=== PATIENT | male | born 1950 | race Caucasian/White ===

== ENCOUNTER → 2018-07-01 | Outpatient (CLI) | payer BC | END | disposition home or self-care (01) | LOC: LABWHC1 10:20 | PROVIDERS: ATTEND Urology | DX: C61 Malignant neoplasm of prostate (principal) | CPT/HCPCS: 36415; 84153 ==

== ENCOUNTER → 2024-09-21 | Outpatient (CLI) | payer MEDICARE ==
[2024-09-21 15:17] LABS: Basophils # (A) 0.03 X 10*3/uL (0.00-0.10); Basophils % (A) 0.5 %; Eosinophils # (A) 0.12 X 10*3/uL (0.04-0.35); HCT 44.5 % (39.6-50.0); HGB 15.3 g/dL (13.0-17.0); Lymphocytes # (A) 1.59 X 10*3/uL (0.90-5.00); Lymphocytes % (A) 26.7 %; MCH 31.4 pg (27.0-32.0); MCHC 34.4 g/dL (32.0-37.0); MCV 91.2 FL (80.0-97.0); Mean Platelet Volume 10.2 FL (9.5-12.2); Monocytes # (A) 0.63 X 10*3/uL (0.20-1.00); Monocytes % (A) 10.6 %; NRBC Per 100 WBC 0 X 10*3/uL (0.00-0.01); Neutrophils # (A) 3.57 X 10*3/uL (1.80-7.70); Neutrophils % (A) 59.9 %; Platelet Count 213 X 10*3/uL (140-440); RBC 4.88 X 10*6/uL (4.40-5.60); RDW 12.6 % (11.5-14.5); WBC 5.96 X 10*3/uL (4.50-10.00)
[2024-09-21 15:56] LABS: BUN/Creat Ratio 12.67 Ratio (12.00-20.00); Blood Urea Nitrogen 11.4 mg/dL (9.0-27.0); Calcium 9.1 mg/dL (8.7-10.3); Carbon Dioxide 24.1 mmol/L (21.6-31.8); Chloride 106 mmol/L (96-109); Glucose 91 mg/dL (70-110); Potassium 4.7 mmol/L (3.5-5.5); Sodium 141 mmol/L (135-145)
== END | disposition home or self-care (01) ==
LOC: LABPAT 11:34
PROVIDERS: ATTEND Urology
DX: Z01.812 Encounter for preprocedural laboratory examination (principal); N20.0 Calculus of kidney
CPT/HCPCS: 80048; 85025

== ENCOUNTER 2024-09-27 09:14 | Day surgery (SDC) | payer MEDICARE ==
[2024-09-25 14:24] VITALS: BMI 28.7
--- NOTE | 2024-09-26 22:22 | P.GSHP ---
History of Present Illness H&P Date: 09/26/24 Chief Complaint: Gross hematuria The patient is a 74-year-old white male who underwent a robotic assisted laparoscopic prostatectomy in 2017 for prostate cancer. He has recently experienced gross hematuria. He has a history of kidney stones, and CT scan showed a 1 cm right renal pelvic calculus. Alternative treatment options were removed, and he has elected to undergo ureteroscopic removal of the calculus. - Genitourinary (Male) Genitourinary: Reports flank pain, Reports hematuria, Denies dysuria Past Medical History Past Medical History: Deep Vein Thrombosis (DVT), Hyperlipidemia Additional Past Medical History / Comment(s): DVT Right leg; high hgb level 40 years ago, bone marrow bx taken to r/o leukemia; kidney stone History of Any Multi-Drug Resistant Organisms: None Reported Past Surgical History: Prostate Surgery Additional Past Surgical History / Comment(s): Prostate removal 9 years ago; finger reattachment. Past Anesthesia/Blood Transfusion Reactions: No Reported Reaction Past Psychological History: No Psychological Hx Reported Smoking Status: Former smoker Past Alcohol Use History: Occasional Additional Past Alcohol Use History / Comment(s): Quit 30 years ago; smoked 1-2 ppd. Past Drug Use History: None Reported - Past Family History Mother Family Medical History: Coronary Artery Disease (CAD) Father Family Medical History: Cancer Brother(s) Family Medical History: Chest Pain / Angina Medications and Allergies Home Medications Medication Instructions Recorded Confirmed Type Ezetimibe [Zetia] 10 mg PO DAILY 09/25/24 09/25/24 History Magnesium 200 mg PO WE 09/25/24 09/25/24 History Rivaroxaban [Xarelto] 20 mg PO DAILY 09/25/24 09/25/24 History Allergies Allergy/AdvReac Type Severity Reaction Status Date / Time No Known Allergies Allergy Verified 09/25/24 14:12 Surgical - Exam - General well developed, well nourished, no distress - Respiratory normal respiratory effort - Psychiatric oriented to time, oriented to person, oriented to place, speech is normal, memory intact Assessment and Plan (1) Calculus of kidney Status: Acute Code(s): N20.0 - CALCULUS OF KIDNEY SNOMED Code(s): 09081608 Plan: Cystoscopy, right ureteroscopy with Holmium laser lithotripsy and stone basketing, right ureteral stent insertion. The procedure has been reviewed in detail with the patient. He has been made aware of potential risks, which include anesthesia, bleeding, infection, ureteral injury, and inability to remove the calculus. He is aware of the possible need for a secondary procedure. The possibility that he will be found to have intravesical pathology was discussed, and if so he is agreeable to indicated procedures.
[~2024-09-27 09:14] MED LIST: LIDOCAINE 1% (10MG/ML) FOR IV START INTRADERMA PRN; droPERidol 2.5 MG/ML VIAL IVP ONE
[2024-09-27] MEDS: IV FLUID CONTINUATION 1,000 ML IV ONE (09:42)
--- NOTE | 2024-09-27 09:52 | XR ---
EXAMINATION TYPE: XR KUB DATE OF EXAM: 09/27/2024 9:45 AM COMPARISON: Nonerrrrrrrrrrrrrrrrrrrrrrrrrrrrr CLINICAL INDICATION: Male, 74 years old with history of pre surgical, TECHNIQUE: Single view of the abdomen. FINDINGS: Right renal calculi: None Visualized. Right ureteral calculi: Right UPJ calculus measuring 8 mm. Left renal calculi: None Visualized. Left ureteral calculi: None Visualized. Pelvic calcifications: None Visualized. Bowel gas pattern is unremarkable. No free air. No mass effects. IMPRESSION: 1. Right UPJ calculus measuring 8 mm. [facility], , 09/27/2024 9:50 AM
[2024-09-27] MEDS: LACTATED RINGERS 1,000 ML IV SCH (10:10)
[2024-09-27] MEDS: DEXAMETHASONE SOD PHOSPHATE 4 MG/ML 1 ML VIAL IV ONE (10:10)
[2024-09-27] MEDS: ONDANSETRON 4 MG/2 ML VIAL IVP ONE (10:10)
[2024-09-27] MEDS: FAMOTIDINE 20 MG/2 ML VIAL IV STA (10:18)
[2024-09-27] MEDS ORDERED: SUCCINYLCHOLINE CHLORIDE 200 MG/10 ML VIAL IV ONE (11:35)
[2024-09-27] MEDS ORDERED: fentaNYL (PF) 50 MCG/ML 2 ML AMP ONE (11:35)
[2024-09-27] MEDS ORDERED: PROPOFOL 10 MG/ML 20 ML VIAL IV ONE (11:35)
[2024-09-27] MEDS ORDERED: HYDROmorphone (PF) 1 MG/ML ONE (11:35)
[2024-09-27] MEDS ORDERED: LIDOCAINE 1% INJ 10MG/ML (20 ML MDV) ONE (11:35)
[2024-09-27] MEDS ORDERED: MIDAZOLAM 2 MG/2 ML VIAL ONE (11:35)
[2024-09-27 13:11] VITALS: TEMP 97
--- NOTE | 2024-09-27 13:15 | FL ---
19 SEC FLUORO, DAP .[id number] mGRUMA beltránO IN [place].R. [facility], , 09/27/2024 1:12 PM
--- NOTE | 2024-09-27 13:17 | P.OP ---
Date of Procedure: 09/27/24 Preoperative Diagnosis: Right renal calculus Postoperative Diagnosis: Same Procedure(s) Performed: Cystoscopy, right ureteroscopy with Holmium laser lithotripsy and stone basketing, right ureteral stent insertion Anesthesia: ENZO Surgeon: Cecil Hernandez Estimated Blood Loss (ml): 5 IV fluids (ml): 600 Pathology: other (Right renal calculus fragment, sent for chemical analysis) Condition: stable Disposition: PACU Indications for Procedure: The patient is a 74-year-old white male who underwent a robotic assisted laparoscopic prostatectomy in 2017 for prostate cancer. He has recently experienced gross hematuria. He has a history of kidney stones, and CT scan showed a 1 cm right renal pelvic calculus. Alternative treatment options were removed, and he has elected to undergo ureteroscopic removal of the calculus. Operative Findings: 1 cm right renal calculus, fragmented completely. Description of Procedure: The patient was taken to the operating room and placed in the dorsolithotomy position, with legs supported in Eric stirrups. The external genitalia was prepped and draped sterilely. The 30 lens was used to introduce the 21-Monegasque Carrington cystoscopic sheath through the urethra and into the bladder under direct vision. The urethra appeared normal. The prostate is surgically absent. The bladder was examined in its entirety. Both ureteral orifices were normal anatomic location and configuration, and clear urine effluxed from both. No tumors or foreign bodies were seen. A 0.038 inch Glidewire was passed through the cystoscope. The right ureteral orifice was cannulated, and the Glidewire was advanced up to the renal pelvis. The cystoscope was removed, and an 11/13- Monegasque ureteral access catheter was passed over the wire, up to the proximal ureter. The Carrington Lagoara flexible ureteroscope was then passed through the ureteral access catheter sheath and advanced under direct vision up to the right renal pelvis. The right UPJ was noted to be narrowed, making passage into the renal pelvis somewhat difficult. The calculus was readily visualized. The 272 micron Holmium laser probe was passed through the ureteroscope, and lithotripsy was performed primarily utilizing a dusting mode. However, the calculus began to fragment, and fragments migrated into a midpole calyx. Within that calyx, popcorning was performed, leaving no residual calculus fragments exceeding 1 mm in size. Fluoroscopy was performed, and no calculus fragments could be visualized. A 1.9 Monegasque 0 tip nitinol basket was used to grasp fragments, but given how small the fragments were only a 1 mm fragment could be removed and sent for analysis. Pullout ureteroscopy showed no evidence of ureteral trauma. The Glidewire was passed through the ureteroscope, which was removed along with the ureteral access catheter sheath. The Glidewire was backloaded into the cystoscope, which was passed into the bladder. A 26 cm, 4.8 Monegasque double-J ureteral stent was placed over the wire. Proper stent positioning was verified fluoroscopically and endoscopically. The bladder was emptied and the cystoscope removed. A string was left attached to the stent, and this was taped to the penis using a Tegaderm dressing. The patient tolerated the procedure well and was taken to the recovery room in stable condition. CRISTIAN COOLEY Report: Procedure Acuity: Elective Stone Size and Location: 1 cm, right renal pelvis Ureteral Dilation: No Ureteral Access Sheath Used: Yes Stone Sent for Analysis: Yes All Stones/Fragments Were Removed with a Basket: No Complications: No Preoperative Antibiotics Given: Yes Stent Placed: Yes If Stent Placed, Was String Left Attached: Yes If Stent Placed, When is it to be Removed: 1 week Discharge Medications: Tamsulosin
[2024-09-27] MEDS: HYDROmorphone 0.5 MG/0.5 ML SYRINGE IVP PRN (13:40)
[2024-09-27] MEDS: KETOROLAC 15 MG/ML 1 ML VIAL IVP STA (14:22)
[2024-09-27 15:07] VITALS: RESP 17
[2024-09-27 15:18] VITALS: BP 135/83; PULSE 71
== END 2024-09-27 16:12 | disposition home or self-care (01) ==
LOC: OR 09:14
PROVIDERS: ATTEND Urology
DX: N20.2 Calculus of kidney with calculus of ureter (principal); R31.0 Gross hematuria; K21.9 Gastro-esophageal reflux disease without esophagitis; E78.5 Hyperlipidemia, unspecified; Z90.79 Acquired absence of other genital organ(s); Z86.718 Personal history of other venous thrombosis and embolism; Z87.891 Personal history of nicotine dependence; Z82.49 Family history of ischemic heart disease and other diseases of the circulatory system; Z79.01 Long term (current) use of anticoagulants; Z79.899 Other long term (current) drug therapy
CPT/HCPCS: 82365; 74018; 52356; C1769; J2250; J0330; J1100; J0690; J2405; J2003; J3010; J1171 ×2; J1885; J2704; J1308

== ENCOUNTER 2024-09-30 15:53 | Emergency (ER) | payer MEDICARE ==
--- NOTE | 2024-09-30 16:23 | ED ---
Abdominal Pain HPI - General Chief Complaint: Abdominal Pain Stated Complaint: Vomiting Time Seen by Provider: 09/30/24 16:20 Source: patient, RN notes reviewed, old records reviewed Mode of arrival: ambulatory Limitations: no limitations - History of Present Illness Initial Comments: This is a 74-year-old male to the ER for evaluation today. This patient presents today for evaluation regards to significant severe abdominal pain right-sided flank pain recent bladder cystoscopy with persistent hematuria after, patient also had right-sided kidney stone that was broken up by Dr. Crane, patient's pain is increased today to severe pain with nausea right flank in the groin mild right side of his abdomen with difficulty with urination bloody urination no clots no blood thinners MD Complaint: abdominal pain -: days(s) Location: RLQ, R flank Radiation: RLQ, R flank Migration to: suprapubic Severity: severe Severity scale (1-10): 10 Quality: sharp Consistency: constant Improves With: nothing Worsens With: nothing Context: recent surgery/procedure Associated Symptoms: nausea Treatments Prior to Arrival: other - Related Data Home Medications Medication Instructions Recorded Confirmed Ezetimibe [Zetia] 10 mg PO DAILY 09/25/24 09/27/24 Magnesium 200 mg PO WE 09/25/24 09/27/24 Rivaroxaban [Xarelto] 20 mg PO DAILY 09/25/24 09/27/24 Previous Rx's Medication Instructions Recorded Tamsulosin [Flomax] 0.4 mg PO DAILY #10 cap 09/27/24 Allergies Allergy/AdvReac Type Severity Reaction Status Date / Time No Known Allergies Allergy Verified 09/30/24 16:16 Review of Systems ROS Statement: Those systems with pertinent positive or pertinent negative responses have been documented in the HPI. ROS Other: All systems not noted in ROS Statement are negative. Past Medical History Past Medical History: Hyperlipidemia Additional Past Medical History / Comment(s): blood clot in leg, History of Any Multi-Drug Resistant Organisms: None Reported Past Surgical History: Prostate Surgery Additional Past Surgical History / Comment(s): prostatectomy, right index finger, Past Psychological History: Anxiety Smoking Status: Former smoker Past Alcohol Use History: Occasional Past Drug Use History: None Reported General Exam Limitations: no limitations General appearance: alert, in no apparent distress, anxious Head exam: Present: atraumatic, normocephalic, normal inspection Eye exam: Present: normal appearance, PERRL, EOMI. Absent: scleral icterus, conjunctival injection, periorbital swelling ENT exam: Present: normal exam, mucous membranes moist Neck exam: Present: normal inspection. Absent: tenderness, meningismus, lymphadenopathy Respiratory exam: Present: normal lung sounds bilaterally. Absent: respiratory distress, wheezes, rales, rhonchi, stridor Cardiovascular Exam: Present: regular rate, normal rhythm, normal heart sounds. Absent: systolic murmur, diastolic murmur, rubs, gallop, clicks GI/Abdominal exam: Present: soft, normal bowel sounds. Absent: distended, tenderness, guarding, rebound, rigid Extremities exam: Present: normal inspection, full ROM, normal capillary refill. Absent: tenderness, pedal edema, joint swelling, calf tenderness Back exam: Present: normal inspection Neurological exam: Present: alert, oriented X3, CN II-XII intact Psychiatric exam: Present: normal affect, normal mood Skin exam: Present: warm, dry, intact, normal color. Absent: rash Course Vital Signs 09/30/24 09/30/24 16:01 18:10 Temperature 97.6 F Pulse Rate 79 78 Respiratory 18 16 Rate Blood Pressure 173/105 136/91 O2 Sat by Pulse 97 98 Oximetry - Reevaluation(s) Reevaluation #1: 09/30/24 17:07 Medical records reviewed Reevaluation #4: Was pt. sent in by a medical professional or institution ([facility], [facility], urgent care, hospital, or longterm...) When possible be specific @ -no Did you speak to anyone other than the patient for history (EMS, parent, family, police, friend...)? What history was obtained from this source @ -no Did you review nursing and triage notes (agree or disagree)? Why? @ -agree Are old charts reviewed (outside hosp., previous admission, EMS record, old EKG, old radiological studies, urgent care reports/EKG's, longterm records)? Report findings @ -yes Differential Diagnosis (chest pain, altered mental status, abdominal pain women, abdominal pain men, vaginal bleeding, weakness, fever, dyspnea, syncope, headache, dizziness, GI bleed, back pain, seizure, CVA, palpatations, mental health, musculoskeletal)? @ -prior EKG interpreted by me (3pts min.). @ -yes X-rays interpreted by me (1pt min.). @ -yes negative for acute disease CT interpreted by me (1pt min.). @ -no U/S interpreted by me (1pt. min.). @ -no What testing was considered but not performed or refused? (CT, X-rays, U/S, labs)? Why? @ -none What meds were considered but not given or refused? Why? @ -none Did you discuss the management of the patient with other professionals (professionals i.e. , PA, [facility], lab, RT, psych nurse, social organization professor, personal protection specialist, teacher, public health service officer, rn field case manager)? Give summary @ -no Was smoking cessation discussed for >3mins.? @ -no Was critical care preformed (if so, how long)? @ -no Were there social determinants of health that impacted care today? How? (Homelessness, low income, unemployed, alcoholism, drug addiction, transportation, low edu. Level, literacy, decrease access to med. care, senior living, rehab)? @ -none Was there de-escalation of care discussed even if they declined (Discuss DNR or withdrawal of care, Hospice)? DNR status @ -no What co-morbidities impacted this encounter? (DM, HTN, Smoking, COPD, CAD, Cancer, CVA, ARF, Chemo, Hep., AIDS, mental health diagnosis, sleep apnea, morbid obesity)? @ -none Was patient admitted / discharged? Hospital course, mention meds given and route, prescriptions, significant lab abnormalities, going to OR and other pertinent info. @ - Undiagnosed new problem with uncertain prognosis? @ -no Drug Therapy requiring intensive monitoring for toxicity (Heparin, Nitro, Insulin, Cardizem)? @ -no Were any procedures done? @ -no Diagnosis/symptom? @ - Acute, or Chronic, or Acute on Chronic? @ -Acute Uncomplicated (without systemic symptoms) or Complicated (systemic symptoms)? @ -Complicated Side effects of treatment? @ -no Exacerbation, Progression, or Severe Exacerbation? @ -exacerbation Poses a threat to life or bodily function? How? (Chest pain, [place], [place], pneumonia, PE, COPD, DKA, ARF, appy, cholecystitis, CVA, Diverticulitis, Homicidal, Aranza cidal, threat to staff... and all critical care pts) @ -yes Reevaluation #5: Differential Abdominal Pain Men: Appendicitis, cholecystitis, diverticulosis, ischemic bowel, pancreatitis, hepatitis, UTI, gastroenteritis, AAA, incarcerated hernia, bowel obstruction, constipation, inflammatory bowel, hepatitis, peptic ulcer disease, splenic infarction, perforated viscus, testicular torsion, this is not meant to be an all-inclusive list Medical Decision Making - Lab Data Result diagrams: 09/30/24 16:58 09/30/24 16:58 Lab Results 09/30/24 09/30/24 09/30/24 Range/Units 16:58 16:58 16:58 WBC 9.00 (4.50-10.00) 10*3/uL RBC 5.11 (4.40-5.60) 10*6/uL Hgb 16.3 (13.0-17.0) g/dL Hct 45.6 (39.6-50.0) % MCV 89.2 (80.0-97.0) fL MCH 31.9 (27.0-32.0) pg MCHC 35.7 (32.0-37.0) g/dL Plt Count 211 (140-440) 10*3/uL MPV 9.9 (9.5-12.2) fL Immature Gran % (Auto) 0.8 % Neutrophils % 72.5 % Lymphocytes % 14.8 % Monocytes % 10.0 % Eosinophils % 1.3 % Basophils % 0.6 % Immature Gran # 0.07 H (0.00-0.04) 10*3/uL Neutrophils # 6.53 (1.80-7.70) 10*3/uL Lymphocytes # 1.33 (0.90-5.00) 10*3/uL Monocytes # 0.90 (0.20-1.00) 10*3/uL Eosinophils # 0.12 (0.04-0.35) 10*3/uL Basophils # 0.05 (0.00-0.10) 10*3/uL PT 12.0 (10.0-12.5) sec INR 1.1 (<1.2) APTT 26.0 (22.0-30.0) sec Sodium (137-145) mmol/L Potassium (3.5-5.1) mmol/L Chloride (98-107) mmol/L Carbon Dioxide (22-30) mmol/L Anion Gap mmol/L BUN (9-20) mg/dL Creatinine (0.66-1.25) mg/dL Est GFR (CKD-EPI)AfAm (>60 ml/min/1.73 sqM) Est GFR (CKD-EPI)NonAf (>60 ml/min/1.73 sqM) Glucose (74-99) mg/dL Plasma Lactic Acid Franco (0.7-2.0) mmol/L Calcium (8.4-10.2) mg/dL Phosphorus (2.5-4.5) mg/dL Magnesium (1.6-2.3) mg/dL Total Bilirubin (0.2-1.3) mg/dL AST (17-59) U/L ALT (4-49) U/L Alkaline Phosphatase (38-126) U/L Troponin I (0.000-0.034) ng/mL Total Protein (6.3-8.2) g/dL Albumin (3.5-5.0) g/dL Amylase (30-110) U/L Lipase (23-300) U/L Urine Color Dark Red Urine Appearance Turbid (Clear) Urine RBC >182 H (0-5) /hpf Urine WBC 52 H (0-5) /hpf Urine Bacteria Rare H (None) /hpf Urine Mucus Many H (None) /hpf Urine Yeast (Budding) Rare H (None) /hpf 09/30/24 09/30/24 09/30/24 Range/Units 16:58 16:58 16:58 WBC (4.50-10.00) 10*3/uL RBC (4.40-5.60) 10*6/uL Hgb (13.0-17.0) g/dL Hct (39.6-50.0) % MCV (80.0-97.0) fL MCH (27.0-32.0) pg MCHC (32.0-37.0) g/dL Plt Count (140-440) 10*3/uL MPV (9.5-12.2) fL Immature Gran % (Auto) % Neutrophils % % Lymphocytes % % Monocytes % % Eosinophils % % Basophils % % Immature Gran # (0.00-0.04) 10*3/uL Neutrophils # (1.80-7.70) 10*3/uL Lymphocytes # (0.90-5.00) 10*3/uL Monocytes # (0.20-1.00) 10*3/uL Eosinophils # (0.04-0.35) 10*3/uL Basophils # (0.00-0.10) 10*3/uL PT (10.0-12.5) sec INR (<1.2) APTT (22.0-30.0) sec Sodium 139 (137-145) mmol/L Potassium 4.3 (3.5-5.1) mmol/L Chloride 104 (98-107) mmol/L Carbon Dioxide 26 (22-30) mmol/L Anion Gap 9 mmol/L BUN 15 (9-20) mg/dL Creatinine 1.08 (0.66-1.25) mg/dL Est GFR (CKD-EPI)AfAm 79 (>60 ml/min/1.73 sqM) Est GFR (CKD-EPI)NonAf 68 (>60 ml/min/1.73 sqM) Glucose 107 H (74-99) mg/dL Plasma Lactic Acid Franco 1.3 (0.7-2.0) mmol/L Calcium 9.9 (8.4-10.2) mg/dL Phosphorus 3.6 (2.5-4.5) mg/dL Magnesium 1.9 (1.6-2.3) mg/dL Total Bilirubin 1.4 H (0.2-1.3) mg/dL AST 29 (17-59) U/L ALT 37 (4-49) U/L Alkaline Phosphatase 82 (38-126) U/L Troponin I <0.012 (0.000-0.034) ng/mL Total Protein 7.1 (6.3-8.2) g/dL Albumin 4.4 (3.5-5.0) g/dL Amylase 70 (30-110) U/L Lipase 60 (23-300) U/L Urine Color Urine Appearance (Clear) Urine RBC (0-5) /hpf Urine WBC (0-5) /hpf Urine Bacteria (None) /hpf Urine Mucus (None) /hpf Urine Yeast (Budding) (None) /hpf Disposition Clinical Impression: Calculus of kidney, Right flank pain Disposition: HOME SELF-CARE Condition: Good Instructions (If sedation given, give patient instructions): Flank Pain (ED) Is patient prescribed a controlled substance at d/c from ED?: No Referrals: Shaggy Butt MD [Primary Care Provider] - 1-2 days Time of Disposition: 20:20
[2024-09-30] MEDS: ONDANSETRON 4 MG/2 ML VIAL IVP STA (17:02)
[2024-09-30] MEDS: MORPHINE SULFATE 4 MG/ML SYRINGE IVP STA ×2 (17:03→20:34)
[2024-09-30] MEDS: SODIUM CHLORIDE 0.9% 1,000 ML IV ONE (17:05)
[2024-09-30 17:23] LABS: Bacteria,Urine Rare /hpf; Budding Yeast,Urine Rare /hpf; Mucus,Urine Many /hpf; RBC,Urine >182 /hpf (0-5); WBC,Urine 52 /hpf (0-5)
[2024-09-30 17:24] LABS: Color,Urine Dark Red; INR 1.1 (<1.2); Partial Thromboplastin Time 26.0 sec (22.0-30.0); Prothrombin Time 12.0 sec (10.0-12.5)
[2024-09-30 17:26] LABS: Anion Gap 9 mmol/L; Blood Urea Nitrogen 15 mg/dL (9-20); Carbon Dioxide 26 mmol/L (22-30); Chloride 104 mmol/L (98-107); Glucose 107 mg/dL (74-99); Potassium 4.3 mmol/L (3.5-5.1); Sodium 139 mmol/L (137-145)
[2024-09-30 17:27] LABS: ALT 37 U/L (4-49); AST 29 U/L (17-59); African American GFR (CKD) 79 (>60 ml/min/1.73 sqM); Albumin 4.4 g/dL (3.5-5.0); Alkaline Phosphatase 82 U/L (38-126); Amylase 70 U/L (30-110); Calcium 9.9 mg/dL (8.4-10.2); Lipase 60 U/L (23-300); Magnesium 1.9 mg/dL (1.6-2.3); Non-African American GFR(CKD) 68 (>60 ml/min/1.73 sqM); Total Protein 7.1 g/dL (6.3-8.2)
[2024-09-30 17:29] LABS: Basophils # (A) 0.05 10*3/uL (0.00-0.10); Basophils % (A) 0.6 %; Eosinophils # (A) 0.12 10*3/uL (0.04-0.35); Eosinophils % (A) 1.3 %; HCT 45.6 % (39.6-50.0); HGB 16.3 g/dL (13.0-17.0); Lymphocytes # (A) 1.33 10*3/uL (0.90-5.00); Lymphocytes % (A) 14.8 %; MCH 31.9 pg (27.0-32.0); MCHC 35.7 g/dL (32.0-37.0); MCV 89.2 fL (80.0-97.0); Monocytes # (A) 0.90 10*3/uL (0.20-1.00); Monocytes % (A) 10.0 %; Neutrophils # (A) 6.53 10*3/uL (1.80-7.70); Neutrophils % (A) 72.5 %; Platelet Count 211 10*3/uL (140-440); RBC 5.11 10*6/uL (4.40-5.60); RDW 12.1 % (11.5-14.5); WBC 9.00 10*3/uL (4.50-10.00)
--- NOTE | 2024-09-30 18:00 | CT ---
EXAMINATION TYPE: CT abdomen pelvis wo con CT DLP: 670.1 mGycm, Automated exposure control for dose reduction was used. DATE OF EXAM: 09/30/2024 5:27 PM COMPARISON: CT abdomen pelvis most recent from 06/12/2015 CLINICAL INDICATION:Male, 74 years old with history of pain; right sided abdominal/flank pain, recent lithotripsy and bladder scope TECHNIQUE: Axial CT abdomen pelvis wo con;Sagittal and coronal reformats were created on a separate workstation. Contrast used: mL of , (none if empty) Oral contrast used: without Oral Contrast (none if empty) FINDINGS: LOWER CHEST: Unremarkable ABDOMEN LIVER: Subcentimeter hypodense foci noted in the left hepatic lobe too small to characterize. The ace er morphology is otherwise within normal limits. GALLBLADDER AND BILE DUCTS: Unremarkable. PANCREAS: Unremarkable. SPLEEN: Small splenule is present. ADRENAL GLANDS: Unremarkable. KIDNEYS AND URETERS: Right ureteral stent is seen with the proximal segment noted in the collecting s ystem with the distal aspect of the stent seen terminating within the urinary bladder. Bilateral extr arenal pelvis is seen. There are small foci of gas noted in the right proximal collecting system as w ell as within the right renal pelvis. There is some fat stranding surrounding the right ureter along its course to the urinary bladder. No obvious calcified renal calculi are seen bilaterally. There is mild pelvocaliectasis bilaterally. PELVIS BLADDER: Distal component of the right ureteral stent is seen terminating within the lumen. There is a small focus of gas seen in a nondependent manner. REPRODUCTIVE: Unremarkable. ABDOMEN & PELVIS STOMACH AND BOWEL: Stomach is grossly unremarkable. Small bowel is of normal caliber scattered coloni c diverticula are seen without associated fat stranding No evidence of bowel obstruction. PERITONEUM/RETROPERITONEUM: No evidence of pneumoperitoneum or free fluid. VASCULATURE: No evidence of aortic aneurysm. Multiple phleboliths noted within the pelvis. MUSCULOSKELETAL: No acute osseous abnormalities LYMPH NODES: No gross evidence for lymphadenopathy. SOFT TISSUE/ABDOMINAL WALL: Unremarkable IMPRESSION: 1. Right ureteral stent is seen in appropriate position. There are multiple small foci of gas seen i n the right collecting system and right renal pelvis. Additionally there is a small focus of gas seen in the urinary bladder. There are inflammatory changes surrounding the right ureter. These findings may relate to reported recent intervention however this should be correlated with patient's clinical history. 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 Correlate with urinalysis. 2. Extrarenal pelvis is noted bilaterally with mild bilateral pelvocaliectasis. No calcified renal ca lculi are identified. [facility], , 09/30/2024 5:58 PM
[2024-09-30] MEDS: SODIUM CHLORIDE 0.9% 500 ML 500 ML IV ONE (18:10)
[2024-09-30] MEDS: traMADol 50 MG STARTER PACK 3 TAB BTL PO STA (20:32)
[2024-09-30] MEDS: CEPHALEXIN 500MG STARTER PACK 4 CAP BTL PO STA (20:32)
[2024-09-30] MEDS: ONDANSETRON 4 MG ODT STARTER PACK 2 TAB BTL PO STA (20:32)
[2024-09-30] MEDS: KETOROLAC 15 MG/ML 1 ML VIAL IVP STA (20:33)
[2024-09-30] MEDS: ACET/COD 300 MG/30 MG STARTER PACK 6 TAB BTL PO STA (20:33)
[2024-09-30 20:43] VITALS: BP 128/95; PULSE 67; RESP 17; TEMP 97.7
== END 2024-09-30 20:43 | disposition home or self-care (01) ==
LOC: EC 15:53
DX: N20.0 Calculus of kidney (principal); R10.31 Right lower quadrant pain; Z87.891 Personal history of nicotine dependence
CPT/HCPCS: 36415; 80053; 82150; 83605; 83690; 83735; 84100; 84484; 85025; 85610; 85730; 81001; 74176; 99284; 96365; 96375; 96376; 96361; J2270; J2405; J0696; J1885; S0119